=== PATIENT | female | born 1960 | race Hispanic/Latino ===

== ENCOUNTER 2020-04-14 13:08 | Emergency (ER) | payer BC ==
--- NOTE | 2020-04-14 13:55 | Emergency Department Report ---
HPI - General Chief Complaint: Psych Time Seen by Provider: 04/14/20 13:27 - HPI HPI: This is a 59-year-old female who presents to the emergency department, brought in from home by her , for a mental health evaluation. The patient attempted to overdose on her medication just prior to presentation this morning. The noticed her stick the pills in her mouth and he was able to manually remove them from her mouth, and he does not feel that she actually ingested any of the medication. The patient has a history of "psychotic dep ression" and she was just recently in [place] for 8 days and got out yesterday. While she was in [place] the was notified that the patient try to stick a pencil or pen in her wrist, and separately tried to electrocute herself in a wall socket, and was placed on a one-to-one observation there. He says that she was discharged yesterday after she was "stabilized." She remains on the Cymbalta and Zyprexa that she previously was taking, and is on the same dose. [place] added trazodone and Benadryl for sleep. Prior to the suicide attempt/ingestion, the patient's attempted to make an appointment with Dr. Jalloh to establish care as her new psychiatrist and did get an appointment for Sunday. He called them back after the patient attempted to harm herself and they were told to come to the [facility] emergency department as "they are associated with your hospital." ED Past Medical Hx - Past Medical History Hx Hypertension: Yes Hx Psychiatric Treatment: Yes (PSYCHOTIC DEPRESSION) - Surgical History Past Surgical History?: No Additional Surgical History: C SECTION - Social History Smoking Status: Never Smoker Substance Use Type: None ED Review of Systems ROS: Stated complaint: MENTAL HEALTH EVAL Other details as noted in HPI Comment: All other systems reviewed and negative Constitutional: denies: chills, fever Eyes: denies: eye pain, vision change ENT: denies: ear pain, throat pain Respiratory: denies: cough, shortness of breath Cardiovascular: denies: chest pain, palpitations Gastrointestinal: denies: abdominal pain, vomiting Musculoskeletal: denies: back pain, arthralgia Neurological: denies: headache, weakness Psychiatric: depression, suicidal thoughts Physical Exam - Physical Exam Vital Signs: Vital Signs 04/14/20 13:17 Temperature 98.2 F Pulse Rate 88 Respiratory 20 Rate Blood Pressure 150/76 O2 Sat by Pulse 96 Oximetry Physical Exam: GENERAL: The patient is well-developed well-nourished. HENT: Normocephalic. Atraumatic. Patient has moist mucous membranes. EYES: Extraocular motions are intact. NECK: Supple. Trachea is midline. CHEST/LUNGS: Clear to auscultation. There is no respiratory distress noted. HEART/CARDIOVASCULAR: Regular. There is no tachycardia. There is no murmur. ABDOMEN: Abdomen is soft, nontender. Patient has normal bowel sounds. SKIN: Skin is warm and dry. NEURO: The patient is awake, alert, and cooperative. Normal speech. MUSCULOSKELETAL: There is no tenderness or deformity. There is no limitation range of motion. PSYCH: Patient has a flat affect. ED Course Vital Signs 04/14/20 13:17 Temperature 98.2 F Pulse Rate 88 Respiratory 20 Rate Blood Pressure 150/76 O2 Sat by Pulse 96 Oximetry - Reevaluation(s) Reevaluation #1: 04/14/20 15:28 Lab Results 04/14/20 04/14/20 04/14/20 Range/Units 14:26 14:26 14:26 WBC 7.3 (4.5-11.0) K/mm3 RBC 4.87 (3.65-5.03) M/mm3 Hgb 14.2 (10.1-14.3) gm/dl Hct 43.0 H (30.3-42.9) % MCV 88 (79-97) fl MCH 29 (28-32) pg MCHC 33 (30-34) % RDW 14.6 (13.2-15.2) % Plt Count 268 (140-440) K/mm3 Lymph % (Auto) 13.8 (13.4-35.0) % [place] % (Auto) 4.8 (0.0-7.3) % Eos % (Auto) 0.3 (0.0-4.3) % Baso % (Auto) 0.1 (0.0-1.8) % Lymph # (Auto) 1.0 L (1.2-5.4) K/mm3 [place] # (Auto) 0.3 (0.0-0.8) K/mm3 Eos # (Auto) 0.0 (0.0-0.4) K/mm3 Baso # (Auto) 0.0 (0.0-0.1) K/mm3 Seg Neutrophils % 81.0 H (40.0-70.0) % Seg Neutrophils # 5.9 (1.8-7.7) K/mm3 Sodium 139 (137-145) mmol/L Potassium 4.4 (3.6-5.0) mmol/L Chloride 103.9 (98-107) mmol/L Carbon Dioxide 26 (22-30) mmol/L Anion Gap 14 mmol/L BUN 18 H (7-17) mg/dL Creatinine 0.9 (0.6-1.2) mg/dL Estimated GFR > 60 ml/min BUN/Creatinine Ratio 20 % Glucose 116 H (65-100) mg/dL Calcium 9.7 (8.4-10.2) mg/dL Total Bilirubin 0.30 (0.1-1.2) mg/dL AST 22 (5-40) units/L ALT 29 (7-56) units/L Alkaline Phosphatase 47 (35-129) units/L Total Protein 6.7 (6.3-8.2) g/dL Albumin 4.2 (3.9-5) g/dL Albumin/Globulin Ratio 1.7 % Urine Color (Yellow) Urine Turbidity (Clear) Urine pH (5.0-7.0) Ur Specific [place] (1.003-1.030) Urine Protein (Negative) mg/dL Urine Glucose (UA) (Negative) mg/dL Urine Ketones (Negative) mg/dL Urine Blood (Negative) Urine Nitrite (Negative) Urine Bilirubin (Negative) Urine Urobilinogen (<2.0) mg/dL Ur Leukocyte Esterase (Negative) Urine WBC (Auto) (0.0-6.0) /HPF Urine RBC (Auto) (0.0-6.0) /HPF U Epithel Cells (Auto) (0-13.0) /HPF Salicylates < 0.3 L (2.8-20.0) mg/dL Urine Opiates Screen Urine Methadone Screen Acetaminophen (10.0-30.0) ug/mL Ur Barbiturates Screen Ur Phencyclidine Scrn Ur Amphetamines Screen U Benzodiazepines Scrn Urine Cocaine Screen U Marijuana (THC) Screen Drugs of Abuse Note Plasma/Serum Alcohol (0-0.07) % 04/14/20 04/14/20 04/14/20 Range/Units 14:26 14:26 Unknown WBC (4.5-11.0) K/mm3 RBC (3.65-5.03) M/mm3 Hgb (10.1-14.3) gm/dl Hct (30.3-42.9) % MCV (79-97) fl MCH (28-32) pg MCHC (30-34) % RDW (13.2-15.2) % Plt Count (140-440) K/mm3 Lymph % (Auto) (13.4-35.0) % [place] % (Auto) (0.0-7.3) % Eos % (Auto) (0.0-4.3) % Baso % (Auto) (0.0-1.8) % Lymph # (Auto) (1.2-5.4) K/mm3 [place] # (Auto) (0.0-0.8) K/mm3 Eos # (Auto) (0.0-0.4) K/mm3 Baso # (Auto) (0.0-0.1) K/mm3 Seg Neutrophils % (40.0-70.0) % Seg Neutrophils # (1.8-7.7) K/mm3 Sodium (137-145) mmol/L Potassium (3.6-5.0) mmol/L Chloride (98-107) mmol/L Carbon Dioxide (22-30) mmol/L Anion Gap mmol/L BUN (7-17) mg/dL Creatinine (0.6-1.2) mg/dL Estimated GFR ml/min BUN/Creatinine Ratio % Glucose (65-100) mg/dL Calcium (8.4-10.2) mg/dL Total Bilirubin (0.1-1.2) mg/dL AST (5-40) units/L ALT (7-56) units/L Alkaline Phosphatase (35-129) units/L Total Protein (6.3-8.2) g/dL Albumin (3.9-5) g/dL Albumin/Globulin Ratio % Urine Color Straw (Yellow) Urine Turbidity Clear (Clear) Urine pH 7.0 (5.0-7.0) Ur Specific [place] 1.004 (1.003-1.030) Urine Protein <15 mg/dl (Negative) mg/dL Urine Glucose (UA) Neg (Negative) mg/dL Urine Ketones Neg (Negative) mg/dL Urine Blood Mod (Negative) Urine Nitrite Neg (Negative) Urine Bilirubin Neg (Negative) Urine Urobilinogen < 2.0 (<2.0) mg/dL Ur Leukocyte Esterase Neg (Negative) Urine WBC (Auto) 1.0 (0.0-6.0) /HPF Urine RBC (Auto) < 1.0 (0.0-6.0) /HPF U Epithel Cells (Auto) 1.0 (0-13.0) /HPF Salicylates (2.8-20.0) mg/dL Urine Opiates Screen Urine Methadone Screen Acetaminophen 5.0 L (10.0-30.0) ug/mL Ur Barbiturates Screen Ur Phencyclidine Scrn Ur Amphetamines Screen U Benzodiazepines Scrn Urine Cocaine Screen U Marijuana (THC) Screen Drugs of Abuse Note Plasma/Serum Alcohol < 0.01 (0-0.07) % 04/14/20 Range/Units Unknown WBC (4.5-11.0) K/mm3 RBC (3.65-5.03) M/mm3 Hgb (10.1-14.3) gm/dl Hct (30.3-42.9) % MCV (79-97) fl MCH (28-32) pg MCHC (30-34) % RDW (13.2-15.2) % Plt Count (140-440) K/mm3 Lymph % (Auto) (13.4-35.0) % [place] % (Auto) (0.0-7.3) % Eos % (Auto) (0.0-4.3) % Baso % (Auto) (0.0-1.8) % Lymph # (Auto) (1.2-5.4) K/mm3 [place] # (Auto) (0.0-0.8) K/mm3 Eos # (Auto) (0.0-0.4) K/mm3 Baso # (Auto) (0.0-0.1) K/mm3 Seg Neutrophils % (40.0-70.0) % Seg Neutrophils # (1.8-7.7) K/mm3 Sodium (137-145) mmol/L Potassium (3.6-5.0) mmol/L Chloride (98-107) mmol/L Carbon Dioxide (22-30) mmol/L Anion Gap mmol/L BUN (7-17) mg/dL Creatinine (0.6-1.2) mg/dL Estimated GFR ml/min BUN/Creatinine Ratio % Glucose (65-100) mg/dL Calcium (8.4-10.2) mg/dL Total Bilirubin (0.1-1.2) mg/dL AST (5-40) units/L ALT (7-56) units/L Alkaline Phosphatase (35-129) units/L Total Protein (6.3-8.2) g/dL Albumin (3.9-5) g/dL Albumin/Globulin Ratio % Urine Color (Yellow) Urine Turbidity (Clear) Urine pH (5.0-7.0) Ur Specific [place] (1.003-1.030) Urine Protein (Negative) mg/dL Urine Glucose (UA) (Negative) mg/dL Urine Ketones (Negative) mg/dL Urine Blood (Negative) Urine Nitrite (Negative) Urine Bilirubin (Negative) Urine Urobilinogen (<2.0) mg/dL Ur Leukocyte Esterase (Negative) Urine WBC (Auto) (0.0-6.0) /HPF Urine RBC (Auto) (0.0-6.0) /HPF U Epithel Cells (Auto) (0-13.0) /HPF Salicylates (2.8-20.0) mg/dL Urine Opiates Screen Negative Urine Methadone Screen Negative Acetaminophen (10.0-30.0) ug/mL Ur Barbiturates Screen Negative Ur Phencyclidine Scrn Negative Ur Amphetamines Screen Negative U Benzodiazepines Scrn Negative Urine Cocaine Screen Negative U Marijuana (THC) Screen Negative Drugs of Abuse Note Disclamer Plasma/Serum Alcohol (0-0.07) % ED Medical Decision Making - Lab Data Result diagrams: 04/14/20 14:26 04/14/20 14:26 - Medical Decision Making This patient presents to the emergency department with depression, suicidal ideations and a suicide attempt. However the patient's was standing right near her when she attempted to overdose on medications and he was able to manually remove these medications from her mouth before she was able to swallow/ingest them. However, secondary to the suicidal ideations and attempt the patient has been made a 1013. Her labs have been mostly unremarkable including CBC, metabolic panel, urine drug screen, blood alcohol level, acetaminophen and salicylate levels. Vital signs have been reassuring throughout her ED course thus far. She is medically cleared for psychiatric placement. Critical Care Time: No Critical care attestation.: If time is entered above; I have spent that time in minutes in the direct care of this critically ill patient, excluding procedure time. ED Disposition Clinical Impression: Suicidal ideations Depression Qualifiers: Depression Type: unspecified Qualified Code(s): F32.9 - Major depressive disorder, single episode, unspecified Suicide attempt by drug ingestion Qualifiers: Encounter type: initial encounter Qualified Code(s): T50.902A - Poisoning by unspecified drugs, medicaments and biological substances, intentional self-harm, initial encounter Disposition: DC/TX-65 PSY HOSP/PSY UNIT Is pt being admited?: No Condition: Stable Time of Disposition: 15:30
[2020-04-14 14:14] LABS: Bilirubin,Urine NEG (Negative); Blood,Urine MOD (Negative); Color,Urine Straw (Yellow); Protein,Urine <15 mg/dL mg/dL (Negative); RBC,Urine < 1.0 /HPF (0.0-6.0); Urobilinogen,Urine < 2.0 mg/dL (<2.0)
[2020-04-14 14:21] LABS: Amphetamine Screen,Urine Negative; Benzodiazepines Screen,Urine Negative; Cannabinoid Screen,Urine Negative; Cocaine Screen,Urine Negative; Methadone Screen,Urine Negative; Opiate Screen,Urine Negative
[2020-04-14 15:07] LABS: Basophils % (Auto) 0.1 % (0.0-1.8); Eosinophils % (Auto) 0.3 % (0.0-4.3); Hemoglobin 14.2 gm/dl (10.1-14.3); Lymphocytes % (Auto) 13.8 % (13.4-35.0); Mean Corpuscular HGB Conc 33 % (30-34); Mean Corpuscular Volume 88 fl (79-97); Monocytes # (Auto) 0.3 K/mm3 (0.0-0.8); Monocytes % (Auto) 4.8 % (0.0-7.3); Platelet Count 268 K/mm3 (140-440); Red Blood Count 4.87 M/mm3 (3.65-5.03); Red Cell Distribution Width 14.6 % (13.2-15.2)
[2020-04-14 15:19] LABS: Alanine Aminotransferase 29 units/L (7-56); Albumin 4.2 g/dL (3.9-5); BUN/Creatinine Ratio 20; Blood Urea Nitrogen 18 mg/dL (7-17); Calcium 9.7 mg/dL (8.4-10.2); Hemolysis Index 7
[2020-04-15 07:50] VITALS: BP 129/78
--- NOTE | 2020-04-15 09:22 | Consultation ---
History of Present Illness - Reason for Consult Consult date: 04/15/20 Reason for consult: SI - History of Present Psychiatric Illness Lorin Hector is a 59y/o female patient who was recently discharged from [place]. The patient attempted to OD on her medications after discharge. It is documented that the states he was able to manually removed the medications from her mouth. During my interview with her this morning, she is a/o x 3. Her affect is flat. She verbalizes being depressed. She says her moods go up and down. She says "I wasn't feeling like myself that's why I took the pills." The patient says she has a history of "psychotic depression." She says she takes "cymbalta and zyprexa and they've been working well before." She denies hallucinations of any kind. The patient also denies any illicit drug use, alcohol or nicotine. Attempted to speak with the patient's spouse at [phone]. He says the patient's mood dropped drastically yesterday. He says the patient's mostly deals with "psychosis." He says the patient gets paranoid. She starts thinking that he doesn't love her any more, people are changing her medications. He says the patient suffers from anxiety a lot and can't ride in a car without severe anxiety and clutching the seats. He says the patient was on risperidone but it didn't work well. He says the Zyprexa and cymbalta has helped keep her stable for the last five years. PAST PSYCHIATRIC HISTORY Diagnoses: "psychotic depression" Suicide attempts or Self-harm behavior: Yes Prior psychiatric hospitalizations: Yes Substance Abuse history: Denies Previous psychiatric medications tried: cymbalta, zyprexa Outpatient treatment: Yes PAST MEDICAL HISTORY: None reported Family Psychiatric History: None reported or documented SOCIAL HISTORY Marital Status: Living Arrangements: with spouse Employment Status: Unemployed Access to guns/weapons: None reported Education: high school History of Abuse: None reported Legal History: Yes REVIEW OF SYSTEMS Constitutional: Negative for weight loss ENT: Negative for stridor Respiratory: Negative for cough or hemoptysis All other systems reviewed and are negative MENTAL STATUS EXAMINATION General Appearance and Behavior: Age appropriate, good hygiene, wearing appropriate clothes, good eye contact Cooperation: Participating/engaged Psychomotor Behavior: Psychomotor normal Mood: depressed Affect and affective range: flat Thought Process: goal directed Thought Content: hopelessness Speech: Normal rate, volume and rhythm Suicidal Ideation: Yes Homicidal Ideation: Denies Hallucinations: Denies Delusions: None elicited Impulse Control: Impaired Insight and Judgment: Limited insight and judgment Memory: Normal Attention: Normal Orientation: Alert, oriented Assessment and Plan (1) Major Depressive Disorder with Psychotic Features (2) Generalized Anxiety Disorder Treatment Start Depakote DR 125mg po BID Start Vistaril 25mg po BID prn anxiety Sitter: Defer to primary Medical: per primary Disposition: Recommend acute inpatient psychiatric treatment Will follow. Thank you for this consult. Medications and Allergies Allergies Allergy/AdvReac Type Severity Reaction Status Date / Time No Known Allergies Allergy Unverified 04/14/20 13:15 Home Medications Medication Instructions Recorded Confirmed Last Taken Type Duloxetine HCl 1 tab PO DAILY 04/14/20 04/14/20 Unknown History OLANZapine [Zyprexa] 1 tab PO QHS 04/14/20 04/14/20 Unknown History traZODone [Desyrel] 200 mg PO QHS 04/14/20 04/14/20 Unknown History Mental Status Exam - Vital signs Last Vital Signs Temp 97.9 F 04/15/20 07:50 Pulse 88 04/15/20 07:50 Resp 18 04/15/20 07:50 BP 129/78 04/15/20 07:50 Pulse Ox 96 04/15/20 07:50 Results Result Diagrams: 04/14/20 14:26 04/14/20 14:26 Abnormal lab results 04/14/20 04/14/20 04/14/20 Range/Units 14:26 14:26 14:26 Hct 43.0 H (30.3-42.9) % Lymph # (Auto) 1.0 L (1.2-5.4) K/mm3 Seg Neutrophils % 81.0 H (40.0-70.0) % BUN 18 H (7-17) mg/dL Glucose 116 H (65-100) mg/dL Salicylates < 0.3 L (2.8-20.0) mg/dL Acetaminophen (10.0-30.0) ug/mL 04/14/20 Range/Units 14:26 Hct (30.3-42.9) % Lymph # (Auto) (1.2-5.4) K/mm3 Seg Neutrophils % (40.0-70.0) % BUN (7-17) mg/dL Glucose (65-100) mg/dL Salicylates (2.8-20.0) mg/dL Acetaminophen 5.0 L (10.0-30.0) ug/mL All other labs normal.
[2020-04-15] MEDS ORDERED: hydrOXYzine PAMOATE 25 MG CAP PO PRN (09:46)
[2020-04-15] MEDS ORDERED: ARIPiprazole 5 MG TAB PO SCH (10:00)
[2020-04-15] MEDS ORDERED: DIVALPROEX DR 125 MG TAB PO SCH (10:00)
[2020-04-15] MEDS ORDERED: DULoxetine 30 MG CAP PO SCH (10:00)
[2020-04-15] MEDS ORDERED: NON-FORMULARY EACH (Duloxetine Hcl [Duloxetine Hcl] 60 MG Capsule.Dr) PO SCH (10:00)
[2020-04-15] MEDS ORDERED: risperiDONE 0.25 MG TAB PO SCH (10:00)
[2020-04-15] MEDS ORDERED: traZODone 100 MG TAB PO SCH (22:00)
== END 2020-04-15 16:34 ==
LOC: ED 13:08
DX: T65.92XA Toxic effect of unspecified substance, intentional self-harm, initial encounter (principal); Z20.828 Contact with and (suspected) exposure to other viral communicable diseases; R45.851 Suicidal ideations; F32.9 Major depressive disorder, single episode, unspecified; I10 Essential (primary) hypertension; Z98.890 Other specified postprocedural states; Y92.89 Other specified places as the place of occurrence of the external cause
CPT/HCPCS: 36415; 80053; 80307; 81001; 85025; 99285; U0003; 80320; G0480

== ENCOUNTER 2020-04-15 15:20 | Inpatient (IN) | payer BC ==
[2020-04-15] MEDS ORDERED: hydrOXYzine PAMOATE 25 MG CAP PO PRN (15:31)
--- NOTE | 2020-04-15 19:41 | Consultation ---
History of Present Illness - Reason for Consult Consult date: 04/15/20 Medical management Requesting physician: RUSTY JUAREZ - History of Present Illness 59 YO Female with HTN, Depression admitted to [facility] for Psychiatric stabilization. Patient seen and evaluated in the recreation room. Patient appears comfortable. Patient denies fever, chills, chest pain, palpitation, productive cough, skin rash, recent ill contacts, or known exposure to COVID-19. Patient resting comfortably. No reported nursing events. Past History Past Medical History: other (see HPI) Past Surgical History: Social history: single Family history: hypertension Medications and Allergies Allergies Allergy/AdvReac Type Severity Reaction Status Date / Time No Known Allergies Allergy Unverified 04/14/20 13:15 Home Medications Medication Instructions Recorded Confirmed Last Taken Type Duloxetine HCl 1 tab PO DAILY 04/14/20 04/15/20 Unknown History OLANZapine [Zyprexa] 1 tab PO QHS 04/14/20 04/15/20 Unknown History traZODone [Desyrel] 200 mg PO QHS 04/14/20 04/15/20 Unknown History Active Meds: Active Medications Divalproex Sodium (Divalproex Dr 125 Mg Tab) 125 mg PO BID EUGENIO Duloxetine HCl (Duloxetine 30 Mg Cap) 60 mg PO QDAY EUGENIO Hydroxyzine Pamoate (Hydroxyzine Pamoate 25 Mg Cap) 25 mg PO BID PRN PRN Reason: Anxiety Olanzapine (Olanzapine 10 Mg Tab) 20 mg PO QHS EUGENIO Trazodone HCl (Trazodone 100 Mg Tab) 200 mg PO QHS [facility] Review of Systems Constitutional: no weight loss, no weight gain, no chills, no sweats Ears, nose, mouth and throat: no ear pain, no ear discharge, no decreased hearing, no nasal congestion Breasts: no change in shape Cardiovascular: no orthopnea, no rapid/irregular heart beat, no syncope, no lightheadedness Respiratory: no cough, no excessive sputum, no shortness of breath, no dyspnea on exertion Gastrointestinal: no abdominal pain, no vomiting Genitourinary Female: no pelvic pain, no flank pain, no dysuria, no urinary frequency Rectal: no pain, no incontinence Musculoskeletal: no low back pain Integumentary: no rash, no pruritis, no redness, no sores, no wounds Neurological: no head injury, no paralysis, no parathesias Psychiatric: no memory loss, no insomnia, no hallucinations Endocrine: no cold intolerance, no heat intolerance, no excessive thirst Hematologic/Lymphatic: no easy bruising Allergic/Immunologic: no urticaria, no allergic rhinitis, no persistent infections, no anaphylaxis Exam - Constitutional General appearance: Present: no acute distress, well-nourished Results - Labs Labs: Abnormal lab results 04/15/20 Range/Units 18:14 POC Glucose 126 H (70-105) mg/dL Assessment and Plan - Patient Problems (1) Hypertension Current Visit: Yes Status: Acute Qualifiers: Hypertension type: essential hypertension Qualified Code(s): I10 - Essential (primary) hypertension Plan to address problem: Patient is normotensive at this time. Continue to monitor blood pressure every shift. We will hold antihypertensive therapy for now. Patient is actually borderline hypotensive. (2) Diabetes Current Visit: Yes Status: Acute Plan to address problem: Supportive care. Hemoglobin A1c 5.7, consistent carbohydrate diet.
[2020-04-15] MEDS: traZODone 100 MG TAB PO SCH (21:52)
[2020-04-15] MEDS: DIVALPROEX DR 125 MG TAB PO SCH ×2 (21:53→22:00)
[2020-04-15] MEDS ORDERED: NON-FORMULARY EACH (Olanzapine [Zyprexa] 20 MG Tablet) PO SCH (22:00)
--- NOTE | 2020-04-16 07:32 | History and Physical Report ---
GP History & Physical - History of Present Illness Date of admission: 04/15/20 Date of Examination: 04/16/20 Reason for Admission: Danger to self, Severe anxiety/depression History of Present Illness: Per ED Provider: This is a 59-year-old female who presents to the emergency department, brought in from home by her , for a mental health evaluation. The patient attempted to overdose on her medication just prior to presentation this morning. The noticed her stick the pills in her mouth and he was able to manually remove them from her mouth, and he does not feel that she actually ingested any of the medication. The patient has a history of "psychotic depression" and she was just recently in [place] for 8 days and got out yesterday. While she was in [place] the was notified that the patient try to stick a pencil or pen in her wrist, and separately tried to electrocute herself in a wall socket, and was placed on a one-to-one observation there. He says that she was discharged yesterday after she was "stabilized." She remains on the Cymbalta and Zyprexa that she previously was taking, and is on the same dose. [place] added trazodone and Benadryl for sleep. Prior to the suicide attempt/ingestion, the patient's attempted to make an appointment with Dr. Jalloh to establish care as her new psychiatrist and did get an appointment for Sunday. He called them back after the patient attempted to harm herself and they were told to come to the [facility] emergency department as "they are associated with your hospital." PSYCH HPI Patient is a 59 year old with children, unemployed Female who resides with with prior psychiatric history of Psychotic Depression, and no significant past medial history who presents to hospital due to SI and Major Depression. Patient reports loosing her dad earlier this year, and this would be the first holiday she would be spending without her dad. Patient reports her dad was 87 before he and not being able to share those moments makes her extremely depressed and she just want to kill herself then patient states she has her own family to live for and she would not want them to be in the same position she is if she had actually killed herself. Patient reports she began having mental health issues 20 years ago because she could barely cope with things she was experiencing at that time and had a mental breakdown. Patient denies nightmares, visual hallucinations and also auditory hallucination. PAST PSYCHIATRIC HISTORY Diagnoses: "psychotic depression" Suicide attempts or Self-harm behavior: Yes Prior psychiatric hospitalizations: Yes Substance Abuse history: Denies Previous psychiatric medications tried: cymbalta, zyprexa Outpatient treatment: Yes PAST MEDICAL HISTORY: None reported Family Psychiatric History: None reported or documented SOCIAL HISTORY Marital Status: Living Arrangements: with spouse Employment Status: Unemployed Access to guns/weapons: None reported Education: high school History of Abuse: None reported Legal History: Yes REVIEW OF SYSTEMS Constitutional: Negative for weight loss ENT: Negative for stridor Respiratory: Negative for cough or hemoptysis All other systems reviewed and are negative MENTAL STATUS EXAMINATION General Appearance and Behavior: Age appropriate, good hygiene, wearing appropriate clothes, good eye contact Cooperation: Participating/engaged Psychomotor Behavior: Psychomotor normal Mood: depressed Affect and affective range: flat Thought Process: goal directed Thought Content: hopelessness Speech: Normal rate, volume and rhythm Suicidal Ideation: Yes Homicidal Ideation: Denies Hallucinations: Denies Delusions: None elicited Impulse Control: Impaired Insight and Judgment: Limited insight and judgment Memory: Normal Attention: Normal Orientation: Alert, oriented Assessment and Plan (1) Major Depressive Disorder with Psychotic Features (2) Generalized Anxiety Disorder Treatment Plan WIll restart hoem medications, add Wellbutrin because its more activating. Patient admitted for inpatient psychiatric evaluation, medication adjustment and close monitoring The patient's behavior, mood, sleep and appetite will be closely monitored. Patient enrolled in individual and group therapeutic sessions and encouraged to attend. Patient provided with a safe and structured environment. Patient's physical health needs will be addressed by the Hospitalist. Hospitalist Consulted Labs including CBC, CMP, Lipid profile and Hemoglobin A1C levels ordered for baseline reference Social Assessment will be completed and the Teleprinter Installer will work with patient and family to ensure a suitable and safe disposition Medication adjustment will be made as clinically indicated Usual Wellness Orthodoxy/Preservation: - Start Trazodone 50 mg po QHS - Start Melatonin 5 mg po QHS to promote circadian rhythm - Start [place]-3 for brain health, reduce impulsivity, and as adjunctive treatment for mood disorder, continue upon discharge given overall benefits. - Start B1 prophylaxis with 200 mg po for 5 days The patient agreed on the treatment plan, understood the risk, benefit, alternative treatment, potential consequence of no treatment, and gave informed consent. Initial Certification I certify that the inpatient psychiatric services are required for treatment that could reasonably be expected to improve the patient's condition for aggression and irritability Estimated days: 7 Post hospital care: primary care provider, psychiatric provider The case was staffed with Dr. Pabon Legal Status: Voluntary Reaction to Hospitalization: Accepting Legal Status: Voluntary Legal Status: Voluntary Reaction to Hospitalization: Accepting Medications and Allergies Allergies Allergy/AdvReac Type Severity Reaction Status Date / Time No Known Allergies Allergy Unverified 04/14/20 13:15 Home Medications Medication Instructions Recorded Confirmed Last Taken Type Duloxetine HCl 1 tab PO DAILY 04/14/20 04/15/20 Unknown History OLANZapine [Zyprexa] 1 tab PO QHS 04/14/20 04/15/20 Unknown History traZODone [Desyrel] 200 mg PO QHS 04/14/20 04/15/20 Unknown History Active Meds: Active Medications Divalproex Sodium (Divalproex Dr 125 Mg Tab) 125 mg PO BID [facility] Last Admin: 04/15/20 22:00 Dose: Not Given Documented by: Duloxetine HCl (Duloxetine 30 Mg Cap) 60 mg PO QDAY [facility] Hydroxyzine Pamoate (Hydroxyzine Pamoate 25 Mg Cap) 25 mg PO BID PRN PRN Reason: Anxiety Olanzapine (Olanzapine 10 Mg Tab) 20 mg PO QHS [facility] Last Admin: 04/15/20 21:53 Dose: 20 mg Documented by: Trazodone HCl (Trazodone 100 Mg Tab) 200 mg PO QHS [facility] Last Admin: 04/15/20 21:52 Dose: 200 mg Documented by: Results - Results Labs/Vitals: Laboratory Last Values POC Glucose 126 mg/dL (70-105) H 04/15/20 18:14 Physician Certification - Certification Statement Physician Certification Statement: This is an acknowledgement statement that CHUY MORAN is a 59 year old F who requires inpatient psychiatric admission for treatment which could reasonably be expected to improve the patient's condition for Estimated period of time patient will need to remain in the hospital: [ ] Plan for post-hospital care: [ ]
[2020-04-16] MEDS ORDERED: NON-FORMULARY EACH (Duloxetine Hcl [Duloxetine Hcl] 60 MG Capsule.Dr) PO SCH (10:00)
[2020-04-16] MEDS: DULoxetine 30 MG CAP PO SCH (10:32)
[2020-04-16] MEDS: buPROPion 100 MG TAB PO SCH (15:54)
[2020-04-16] MEDS: DIVALPROEX DR 125 MG TAB PO SCH ×2 (15:54→21:14)
[2020-04-16] MEDS: traZODone 100 MG TAB PO SCH (21:14)
--- NOTE | 2020-04-17 09:07 | Progress Note ---
Subjective Date of service: 04/17/20 Principal diagnosis: (1) Major Depressive Disorder with Psychotic Features Subjective Comment: Psych Nurse: Last evening the patient walked around the unit with a bizarre affect. She discussed her depression and her long marriage that she states "will Not last longer". When questioned about that statement the patient doesn't answer. Patient is paranoid regarding her room and her medications. She refused sever=stephen Psych progress note Patient seen this a.m., patient reported having sleeping issues, says her mood is pretty good denies any auditory or visual destinations also denies any thoughts of suicide. At her first patient statement that she made about a marriage yesterday patient did acknowledge saying that I asked her why she thinks that her marriage did not last, patient said because she thinks that her does not really love her. I asked patient if the did anything or said anything to hurt that could suggest that patient says no is just a feeling. Reason for continued acute psychiatric inpatient hospitalization: though SI symptoms no longer present, concern for underlying borderline or bipolar symptoms, persistent impulsivity, indiscretion, intermittent ideas, and unstable mood associated with poor sleep and treatment regimen non adherence. May be hypomanic, untreated. Will check for deparkote levels tomorrow. I informed patient about her new medication Wellbutrin that was started, she is agreeable to medication. REVIEW OF SYSTEMS Constitutional: Negative for weight loss ENT: Negative for stridor Respiratory: Negative for cough or hemoptysis All other systems reviewed and are negative MENTAL STATUS EXAMINATION General Appearance and Behavior: Age appropriate, good hygiene, wearing approp riate clothes, good eye contact Cooperation: Participating/engaged Psychomotor Behavior: Psychomotor normal Mood: depressed Affect and affective range: flat Thought Process: goal directed, illogical Thought Content: hopelessness, , Obsessions, Flight of ideas, Illogical, Speech: Normal rate, volume and rhythm Suicidal Ideation: None today Homicidal Ideation: Denies Hallucinations: Denies Delusions: None elicited Impulse Control: Impaired Insight and Judgment: Limited insight and judgment Memory: Normal Attention: Normal Orientation: Alert, oriented Assessment and Plan (1) Major Depressive Disorder with Psychotic Features (2) Generalized Anxiety Disorder Treatment Plan Will restart hoem medications, add Wellbutrin because its more activating. Patient admitted for inpatient psychiatric evaluation, medication adjustment and close monitoring The patient's behavior, mood, sleep and appetite will be closely monitored. Patient enrolled in individual and group therapeutic sessions and encouraged to attend. Patient provided with a safe and structured environment. Patient's physical health needs will be addressed by the Hospitalist. Hospitalist Consulted Labs including CBC, CMP, Lipid profile and Hemoglobin A1C levels ordered for baseline reference Social Assessment will be completed and the Tube Cutter will work with patient and family to ensure a suitable and safe disposition Medication adjustment will be made as clinically indicated Usual Wellness Bahai/Preservation: - Start Trazodone 50 mg po QHS - Start Melatonin 5 mg po QHS to promote circadian rhythm - Start [place]-3 for brain health, reduce impulsivity, and as adjunctive treatment for mood disorder, continue upon discharge given overall benefits. - Start B1 prophylaxis with 200 mg po for 5 days The patient agreed on the treatment plan, understood the risk, benefit, alternative treatment, potential consequence of no treatment, and gave informed consent. Initial Certification I certify that the inpatient psychiatric services are required for treatment that could reasonably be expected to improve the patient's condition for ag gression and irritability Estimated days: 6 Post hospital care: primary care provider, psychiatric provider The case was staffed with Dr. Pabon Legal Status: Voluntary Reaction to Hospitalization: Accepting Legal Status: Voluntary Legal Status: Voluntary Reaction to Hospitalization: Accepting Medications and Allergies Allergies Allergy/AdvReac Type Severity Reaction Status Date / Time No Known Allergies Allergy Unverified 04/14/20 13:15 Home Medications Medication Instructions Recorded Confirmed Last Taken Type Duloxetine HCl 1 tab PO DAILY 04/14/20 04/15/20 Unknown History OLANZapine [Zyprexa] 1 tab PO QHS 04/14/20 04/15/20 Unknown History traZODone [Desyrel] 200 mg PO QHS 04/14/20 04/15/20 Unknown History Active Meds: Active Medications Bupropion HCl (Bupropion 100 Mg Tab) 200 mg PO 0900,1400 [facility] Divalproex Sodium (Divalproex Dr 125 Mg Tab) 250 mg PO TID [facility] Duloxetine HCl (Duloxetine 30 Mg Cap) 60 mg PO QDAY [facility] Last Admin: 04/16/20 10:32 Dose: 60 mg Documented by: Hydroxyzine Pamoate (Hydroxyzine Pamoate 25 Mg Cap) 25 mg PO BID PRN PRN Reason: Anxiety Olanzapine (Olanzapine 10 Mg Tab) 20 mg PO QHS [facility] Last Admin: 04/16/20 21:14 Dose: 20 mg Documented by: Trazodone HCl (Trazodone 100 Mg Tab) 200 mg PO QHS [facility] Last Admin: 04/16/20 21:14 Dose: 200 mg Documented by: Results - Results Labs/Vitals: Laboratory Last Values POC Glucose 104 mg/dL (70-105) 04/16/20 20:09 Last Vital Signs Temp 99.4 F 04/16/20 22:00 Pulse 81 04/16/20 22:00 Resp 18 04/16/20 22:00 BP 102/69 04/16/20 22:00 Pulse Ox 95 04/16/20 22:00
[2020-04-17] MEDS: DULoxetine 30 MG CAP PO SCH (09:48)
[2020-04-17 11:00] LABS: Chol/HDL Ratio 3.43 %
[2020-04-17] MEDS: DIVALPROEX DR 125 MG TAB PO SCH ×3 (11:16→21:06)
[2020-04-17] MEDS: buPROPion 100 MG TAB PO SCH ×3 (11:17→14:36)
--- NOTE | 2020-04-17 20:09 | Progress Note ---
Assessment and Plan - Patient Problems (1) Hypertension Current Visit: Yes Status: Acute Qualifiers: Hypertension type: essential hypertension Qualified Code(s): I10 - Essential (primary) hypertension Plan to address problem: Patient is normotensive at this time. Continue to monitor blood pressure every shift. We will hold antihypertensive therapy for now. Patient is actually borderline hypotensive. (2) Diabetes Current Visit: Yes Status: Acute Plan to address problem: Supportive care. Hemoglobin A1c 5.7, consistent carbohydrate diet. History Interval history: 59 YO Female with HTN, Depression admitted to [facility] for Psychiatric stabilization. Patient seen and evaluated in the recreation room. Patient appears comfortable. Patient denies any complaints this AM. Patient denies pain. No reported nursing events. Hospitalist Physical - Constitutional Vitals: Temp Pulse Resp BP Pulse Ox 99.4 F 81 18 102/69 95 04/16/20 22:00 04/16/20 22:00 04/16/20 22:00 04/16/20 22:00 04/16/20 22:00 General appearance: Present: no acute distress, well-nourished - EENT Eyes: Present: PERRL, EOM intact ENT: hearing intact - Neck Neck: Present: supple - Respiratory Respiratory effort: normal Respiratory: bilateral: CTA - Cardiovascular Rhythm: regular Heart Sounds: Present: S1 & S2 (Hospitalist.) - Extremities Extremities: no ischemia Peripheral Pulses: within normal limits - Abdominal General gastrointestinal: soft, non-tender, non-distended - Integumentary Integumentary: Present: clear, dry - Psychiatric Psychiatric: cooperative - Neurologic Neurologic: CNII-XII intact Results - Labs Labs: Laboratory Last Values POC Glucose 104 mg/dL (70-105) 04/16/20 20:09 Hemoglobin A1c 5.7 % (4-6) 04/17/20 10:22 Triglycerides 130 mg/dL (2-149) 04/17/20 10:22 Cholesterol 175 mg/dL (50-199) 04/17/20 10:22 LDL Cholesterol Direct 114 mg/dL (50-130) 04/17/20 10:22 HDL Cholesterol 51 mg/dL (40-59) 04/17/20 10:22 Cholesterol/HDL Ratio 3.43 % 04/17/20 10:22 TSH 1.350 mlU/mL (0.270-4.200) 04/17/20 10:22 Hernandez/IV: Voiding Method Toilet Active Medications - Current Medications Current Medications: Generic Name Dose Route Start Last Admin Trade Name Freq PRN Reason Stop Dose Admin Bupropion HCl 200 mg 04/17/20 09:30 04/17/20 14:36 Bupropion 100 Mg Tab PO 200 mg 0900,1400 [facility] Administration Divalproex Sodium 250 mg 04/17/20 10:00 04/17/20 14:[address] 125 Mg Tab PO 250 mg TID [facility] Administration Duloxetine HCl 60 mg 04/16/20 10:00 04/17/20 09:48 Duloxetine 30 Mg Cap PO 60 mg QDAY [facility] Administration Hydroxyzine Pamoate 25 mg 04/15/20 15:31 Hydroxyzine Pamoate 25 Mg Cap PO BID PRN Anxiety Olanzapine 20 mg 04/15/20 22:00 04/16/20 21:14 Olanzapine 10 Mg Tab PO 20 mg QHS [facility] Administration Trazodone HCl 200 mg 04/15/20 22:00 04/16/20 21:14 Trazodone 100 Mg Tab PO 200 mg QHS [facility] Administration
[2020-04-17] MEDS: traZODone 100 MG TAB PO SCH (21:01)
[2020-04-17] MEDS: DIVALPROEX DR 250 MG TAB PO SCH (21:01)
[2020-04-18] MEDS: DIVALPROEX DR 250 MG TAB PO SCH (09:01)
[2020-04-18] MEDS: DULoxetine 30 MG CAP PO SCH (09:01)
[2020-04-18] MEDS: buPROPion 100 MG TAB PO SCH ×2 (09:02→14:11)
--- NOTE | 2020-04-18 09:43 | Progress Note ---
Subjective Date of service: 04/18/20 Principal diagnosis: (1) Major Depressive Disorder with Psychotic Features Subjective Comment: Psych Nurse: Pt scheduled for Trazodone 200 mg at HS. Refused 100 mg and took only 100 mg stating 200 mg is too much for her. Rested w/o incident overnight. Denies SI this a.m. "No more," she stated. Will continue to monitor her. Psych progress note Patient seen this a.m., patient reports feeling much better today, patient states her memory is about that now makes her happy, good times, debilitation, diabetes says she wants to keep positive images only based on her previous discussion. She says she is normal having any negative thoughts about her marriage also, patient denies any any suicidal or homicidal thoughts. Reason for continued acute psychiatric inpatient hospitalization: Though SI symptoms no longer present, concern for underlying borderline or bipolar symptoms, will check Depakote levels today. REVIEW OF SYSTEMS Constitutional: Negative for weight loss ENT: Negative for stridor Respiratory: Negative for cough or hemoptysis All other systems reviewed and are negative MENTAL STATUS EXAMINATION General Appearance and Behavior: Age appropriate, good hygiene, wearing appropriate clothes, good eye contact Cooperation: Participating/engaged Psychomotor Behavior: Psychomotor normal Mood: feeling better Affect and affective range: congruent with mood Thought Process: fluent but preservative Thought Content: Logical, within reality Speech: Normal rate, volume and rhythm Suicidal Ideation: denies Homicidal Ideation: Denies Hallucinations: Denies Delusions: None elicited Impulse Control: unimpaired Insight and Judgment: Limited insight and judgment Memory: Normal Attention: Normal Orientation: Alert, oriented Assessment and Plan (1) Major Depressive Disorder with Psychotic Features (2) Generalized Anxiety Disorder Treatment Plan Continue current meds, will check deparkote levels today Patient admitted for inpatient psychiatric evaluation, medication adjustment and close monitoring The patient's behavior, mood, sleep and appetite will be closely monitored. Patient enrolled in individual and group therapeutic sessions and encouraged to attend. Patient provided with a safe and structured environment. Patient's physical health needs will be addressed by the Hospitalist. Hospitalist Consulted Labs including CBC, CMP, Lipid profile and Hemoglobin A1C levels ordered for baseline reference Social Assessment will be completed and the Irrigator Head will work with patient and family to ensure a suitable and safe disposition Medication adjustment will be made as clinically indicated Usual Wellness Hoahaoism/Preservation: - Start Trazodone 50 mg po QHS - Start Melatonin 5 mg po QHS to promote circadian rhythm - Start [place]-3 for brain health, reduce impulsivity, and as adjunctive treatment for mood disorder, continue upon discharge given overall benefits. - Start B1 prophylaxis with 200 mg po for 5 days The patient agreed on the treatment plan, understood the risk, benefit, alternative treatment, potential consequence of no treatment, and gave informed consent. Initial Certification I certify that the inpatient psychiatric services are required for treatment that could reasonably be expected to improve the patient's condition for aggression and irritability Estimated days: 4 Post hospital care: primary care provider, psychiatric provider The case was staffed with Dr. Pabon Legal Status: Voluntary Reaction to Hospitalization: Accepting Legal Status: Voluntary Legal Status: Voluntary Reaction to Hospitalization: Accepting Medications and Allergies Allergies Allergy/AdvReac Type Severity Reaction Status Date / Time No Known Allergies Allergy Unverified 04/14/20 13:15 Home Medications Medication Instructions Recorded Confirmed Last Taken Type Duloxetine HCl 1 tab PO DAILY 04/14/20 04/15/20 Unknown History OLANZapine [Zyprexa] 1 tab PO QHS 04/14/20 04/15/20 Unknown History traZODone [Desyrel] 200 mg PO QHS 04/14/20 04/15/20 Unknown History Active Meds: Active Medications Bupropion HCl (Bupropion 100 Mg Tab) 200 mg PO 0900,1400 [facility] Last Admin: 04/18/20 09:02 Dose: 200 mg Documented by: Divalproex Sodium (Divalproex Dr 250 Mg Tab) 250 mg PO TID [facility] Last Admin: 04/18/20 09:01 Dose: 250 mg Documented by: Duloxetine HCl (Duloxetine 30 Mg Cap) 60 mg PO QDAY [facility] Last Admin: 04/18/20 09:01 Dose: 60 mg Documented by: Hydroxyzine Pamoate (Hydroxyzine Pamoate 25 Mg Cap) 25 mg PO BID PRN PRN Reason: Anxiety Olanzapine (Olanzapine 10 Mg Tab) 20 mg PO QHS [facility] Last Admin: 04/17/20 21:01 Dose: 20 mg Documented by: Trazodone HCl (Trazodone 100 Mg Tab) 200 mg PO QHS [facility] Last Admin: 04/17/20 21:01 Dose: 200 mg Documented by: Results - Results Labs/Vitals: Laboratory Last Values POC Glucose 104 mg/dL (70-105) 04/16/20 20:09 Hemoglobin A1c 5.7 % (4-6) 04/17/20 10:22 Triglycerides 130 mg/dL (2-149) 04/17/20 10:22 Cholesterol 175 mg/dL (50-199) 04/17/20 10:22 LDL Cholesterol Direct 114 mg/dL (50-130) 04/17/20 10:22 HDL Cholesterol 51 mg/dL (40-59) 04/17/20 10:22 Cholesterol/HDL Ratio 3.43 % 04/17/20 10:22 TSH 1.350 mlU/mL (0.270-4.200) 04/17/20 10:22 Last Vital Signs Temp 98.0 F 04/18/20 07:02 Pulse 77 04/18/20 07:02 Resp 16 04/18/20 07:02 BP 129/72 04/18/20 07:02 Pulse Ox 91 04/18/20 07:02
[2020-04-18] MEDS: traZODone 100 MG TAB PO SCH ×2 (21:51→21:58)
[2020-04-18] MEDS ORDERED: DIVALPROEX DR 250 MG TAB PO SCH (22:00)
--- NOTE | 2020-04-19 07:52 | Progress Note ---
Subjective Date of service: 04/19/20 Principal diagnosis: (1) Major Depressive Disorder with Psychotic Features Subjective Comment: Psych Nurse: Last evening the patient interacted appropriately with her peers. She remains mildly suspicious. She denies si/hi/ah/vh. Patient took all medications except instead of trazodone 200mg the patient took 100 mg. Will continue to monitor patient for safety. Psych progress note Patient seen this AM, still in bed, reports feeling slightly tired but otherwise she feels great mood starkey. Endorses medication compliance but contradicts nurse notes, reports speaking with yesterday and conversation went well. Reason for continued acute psychiatric inpatient hospitalization: Valproate levels are subtherapeutic at 30.7, patient valproate dose adjusted and increased will recheck, Pt informed of changes and why they were made. Will continue to observe for mood stability and start planning for safety discharge. REVIEW OF SYSTEMS Constitutional: Negative for weight loss ENT: Negative for stridor Respiratory: Negative for cough or hemoptysis All other systems reviewed and are negative MENTAL STATUS EXAMINATION General Appearance and Behavior: Age appropriate, good hygiene, wearing appropriate clothes, good eye contact Cooperation: Participating/engaged Psychomotor Behavior: Psychomotor normal Mood: feeling better Affect and affective range: congruent with mood Thought Process: fluent but preservative Thought Content: Logical, within reality Speech: Normal rate, volume and rhythm Suicidal Ideation: denies Homicidal Ideation: Denies Hallucinations: Denies Delusions: None elicited Impulse Control: unimpaired Insight and Judgment: Limited insight and judgment Memory: Normal Attention: Normal Orientation: Alert, oriented Assessment and Plan (1) Major Depressive Disorder with Psychotic Features (2) Generalized Anxiety Disorder Treatment Plan Depakote dose changed, due to subtherapeutic levels. Patient admitted for inpatient psychiatric evaluation, medication adjustment and close monitoring The patient's behavior, mood, sleep and appetite will be closely monitored. Patient enrolled in individual and group therapeutic sessions and encouraged to attend. Patient provided with a safe and structured environment. Patient's physical health needs will be addressed by the Hospitalist. Hospitalist Consulted Labs including CBC, CMP, Lipid profile and Hemoglobin A1C levels ordered for baseline reference Social Assessment will be completed and the Bridge Inspector will work with patient and family to ensure a suitable and safe disposition Medication adjustment will be made as clinically indicated Usual Wellness Amish/Preservation: - Start Trazodone 50 mg po QHS - Start Melatonin 5 mg po QHS to promote circadian rhythm - Start [place]-3 for brain health, reduce impulsivity, and as adjunctive treatment for mood disorder, continue upon discharge given overall benefits. - Start B1 prophylaxis with 200 mg po for 5 days The patient agreed on the treatment plan, understood the risk, benefit, alternative treatment, potential consequence of no treatment, and gave informed consent. Initial Certification I certify that the inpatient psychiatric services are required for treatment that could reasonably be expected to improve the patient's condition for aggression and irritability Estimated days:2 Post hospital care: primary care provider, psychiatric provider The case was staffed with Dr. Pabon Legal Status: Voluntary Reaction to Hospitalization: Accepting Legal Status: Voluntary Legal Status: Voluntary Reaction to Hospitalization: Accepting Medications and Allergies Allergies Allergy/AdvReac Type Severity Reaction Status Date / Time No Known Allergies Allergy Unverified 04/14/20 13:15 Home Medications Medication Instructions Recorded Confirmed Last Taken Type Duloxetine HCl 1 tab PO DAILY 04/14/20 04/15/20 Unknown History OLANZapine [Zyprexa] 1 tab PO QHS 04/14/20 04/15/20 Unknown History traZODone [Desyrel] 200 mg PO QHS 04/14/20 04/15/20 Unknown History Active Meds: Active Medications Bupropion HCl (Bupropion 100 Mg Tab) 200 mg PO 0900,1400 [facility] Last Admin: 04/18/20 14:11 Dose: 200 mg Documented by: Divalproex Sodium (Divalproex Dr 250 Mg Tab) 1,000 mg PO QAM [facility] Divalproex Sodium (Divalproex Dr 500 Mg Tab) 500 mg PO QHS [facility] Duloxetine HCl (Duloxetine 30 Mg Cap) 60 mg PO QDAY [facility] Last Admin: 04/18/20 09:01 Dose: 60 mg Documented by: Hydroxyzine Pamoate (Hydroxyzine Pamoate 25 Mg Cap) 25 mg PO BID PRN PRN Reason: Anxiety Olanzapine (Olanzapine 10 Mg Tab) 20 mg PO QHS [facility] Last Admin: 04/18/20 21:50 Dose: 20 mg Documented by: Trazodone HCl (Trazodone 100 Mg Tab) 200 mg PO QHS [facility] Last Admin: 04/18/20 21:58 Dose: 100 mg Documented by: Results - Results Labs/Vitals: Laboratory Last Values POC Glucose 104 mg/dL (70-105) 04/16/20 20:09 Hemoglobin A1c 5.7 % (4-6) 04/17/20 10:22 Triglycerides 130 mg/dL (2-149) 04/17/20 10:22 Cholesterol 175 mg/dL (50-199) 04/17/20 10:22 LDL Cholesterol Direct 114 mg/dL (50-130) 04/17/20 10:22 HDL Cholesterol 51 mg/dL (40-59) 04/17/20 10:22 Cholesterol/HDL Ratio 3.43 % 04/17/20 10:22 TSH 1.350 mlU/mL (0.270-4.200) 04/17/20 10:22 Valproic Acid 30.7 ug/mL (50-100) L 04/18/20 19:58 Last Vital Signs Temp 98.9 F 04/18/20 19:39 Pulse 80 04/18/20 19:39 Resp 16 04/18/20 19:39 BP 106/67 04/18/20 19:39 Pulse Ox 94 04/18/20 19:39
[2020-04-19] MEDS: buPROPion 100 MG TAB PO SCH ×2 (09:59→14:00)
[2020-04-19] MEDS: DIVALPROEX DR 250 MG TAB PO SCH (10:00)
[2020-04-19] MEDS: DULoxetine 30 MG CAP PO SCH (10:00)
--- NOTE | 2020-04-19 20:24 | Progress Note ---
Assessment and Plan - Patient Problems (1) Hypertension Current Visit: Yes Status: Acute Qualifiers: Hypertension type: essential hypertension Qualified Code(s): I10 - Essential (primary) hypertension Plan to address problem: Patient is normotensive at this time. Continue to monitor blood pressure every shift. We will hold antihypertensive therapy for now. Patient is actually borderline hypotensive. (2) Diabetes Current Visit: Yes Status: Acute Plan to address problem: Supportive care. Hemoglobin A1c 5.7, consistent carbohydrate diet. History Interval history: 59 YO Female with HTN, Depression admitted to [facility] for Psychiatric stabilization. Patient seen and evaluated in the recreation room. Patient appears comfortable. Patient denies any complaints this AM. Patient denies pain. No reported nursing events. Hospitalist Physical - Constitutional Vitals: Temp Pulse Resp BP Pulse Ox 98.9 F 80 16 106/67 94 04/18/20 19:39 04/18/20 19:39 04/18/20 19:39 04/18/20 19:39 04/18/20 19:39 General appearance: Present: no acute distress, well-nourished - EENT Eyes: Present: PERRL, EOM intact - Neck Neck: Present: supple - Respiratory Respiratory effort: normal Respiratory: bilateral: CTA - Cardiovascular Rhythm: regular Peripheral Pulses: within normal limits - Abdominal General gastrointestinal: soft, non-tender, non-distended - Integumentary Integumentary: Present: clear, dry - Psychiatric Psychiatric: cooperative - Neurologic Neurologic: CNII-XII intact Results - Labs Labs: Laboratory Last Values POC Glucose 104 mg/dL (70-105) 04/16/20 20:09 Hemoglobin A1c 5.7 % (4-6) 04/17/20 10:22 Triglycerides 130 mg/dL (2-149) 04/17/20 10:22 Cholesterol 175 mg/dL (50-199) 04/17/20 10:22 LDL Cholesterol Direct 114 mg/dL (50-130) 04/17/20 10:22 HDL Cholesterol 51 mg/dL (40-59) 04/17/20 10:22 Cholesterol/HDL Ratio 3.43 % 04/17/20 10:22 TSH 1.350 mlU/mL (0.270-4.200) 04/17/20 10:22 Valproic Acid 30.7 ug/mL (50-100) L 04/18/20 19:58 Hernandez/IV: Voiding Method Toilet Active Medications - Current Medications Current Medications: Generic Name Dose Route Start Last Admin Trade Name Freq PRN Reason Stop Dose Admin Bupropion HCl 200 mg 04/17/20 09:30 04/19/20 14:00 Bupropion 100 Mg Tab PO 200 mg 0900,1400 [facility] Administration Divalproex Sodium 1,000 mg 04/19/20 10:00 04/19/20 10:[address] 250 Mg Tab PO 1,000 mg QAM [facility] Administration Divalproex Sodium 500 mg 04/19/20 22:[address] 500 Mg Tab PO QHS [facility] Duloxetine HCl 60 mg 04/16/20 10:00 04/19/20 10:00 Duloxetine 30 Mg Cap PO 60 mg QDAY [facility] Administration Hydroxyzine Pamoate 25 mg 04/15/20 15:31 Hydroxyzine Pamoate 25 Mg Cap PO BID PRN Anxiety Olanzapine 20 mg 04/15/20 22:00 04/18/20 21:50 Olanzapine 10 Mg Tab PO 20 mg QHS [facility] Administration Trazodone HCl 200 mg 04/15/20 22:00 04/18/20 21:58 Trazodone 100 Mg Tab PO 100 mg QHS [facility] Administration
--- NOTE | 2020-04-19 20:25 | Progress Note ---
Assessment and Plan - Patient Problems (1) Hypertension Current Visit: Yes Status: Acute Qualifiers: Hypertension type: essential hypertension Qualified Code(s): I10 - Essential (primary) hypertension Plan to address problem: Patient is normotensive at this time. Continue to monitor blood pressure every shift. We will hold antihypertensive therapy for now. Patient is actually borderline hypotensive. (2) Diabetes Current Visit: Yes Status: Acute Plan to address problem: Supportive care. Hemoglobin A1c 5.7, consistent carbohydrate diet. History Interval history: 59 YO Female with HTN, Depression admitted to [facility] for Psychiatric stabilization. Patient seen and evaluated in the recreation room. Patient appears comfortable. Patient denies any complaints this AM. Patient denies pain. No reported nursing events. Hospitalist Physical - Constitutional Vitals: Temp Pulse Resp BP Pulse Ox 98.9 F 80 16 106/67 94 04/18/20 19:39 04/18/20 19:39 04/18/20 19:39 04/18/20 19:39 04/18/20 19:39 General appearance: Present: no acute distress, well-nourished - EENT Eyes: Present: PERRL, EOM intact ENT: hearing intact - Neck Neck: Present: supple - Respiratory Respiratory: bilateral: CTA - Cardiovascular Rhythm: regular Heart Sounds: Present: S1 & S2 - Extremities Extremities: no ischemia Peripheral Pulses: within normal limits - Abdominal General gastrointestinal: soft, non-tender, non-distended - Integumentary Integumentary: Present: clear, dry - Psychiatric Psychiatric: cooperative - Neurologic Neurologic: CNII-XII intact Results - Labs Labs: Laboratory Last Values POC Glucose 104 mg/dL (70-105) 04/16/20 20:09 Hemoglobin A1c 5.7 % (4-6) 04/17/20 10:22 Triglycerides 130 mg/dL (2-149) 04/17/20 10:22 Cholesterol 175 mg/dL (50-199) 04/17/20 10:22 LDL Cholesterol Direct 114 mg/dL (50-130) 04/17/20 10:22 HDL Cholesterol 51 mg/dL (40-59) 04/17/20 10:22 Cholesterol/HDL Ratio 3.43 % 04/17/20 10:22 TSH 1.350 mlU/mL (0.270-4.200) 04/17/20 10:22 Valproic Acid 30.7 ug/mL (50-100) L 04/18/20 19:58 Hernandez/IV: Voiding Method Toilet Active Medications - Current Medications Current Medications: Generic Name Dose Route Start Last Admin Trade Name Freq PRN Reason Stop Dose Admin Bupropion HCl 200 mg 04/17/20 09:30 04/19/20 14:00 Bupropion 100 Mg Tab PO 200 mg 0900,1400 [facility] Administration Divalproex Sodium 1,000 mg 04/19/20 10:00 04/19/20 10:[address] 250 Mg Tab PO 1,000 mg QAM [facility] Administration Divalproex Sodium 500 mg 04/19/20 22:[address] 500 Mg Tab PO QHS [facility] Duloxetine HCl 60 mg 04/16/20 10:00 04/19/20 10:00 Duloxetine 30 Mg Cap PO 60 mg QDAY [facility] Administration Hydroxyzine Pamoate 25 mg 04/15/20 15:31 Hydroxyzine Pamoate 25 Mg Cap PO BID PRN Anxiety Olanzapine 20 mg 04/15/20 22:00 04/18/20 21:50 Olanzapine 10 Mg Tab PO 20 mg QHS [facility] Administration Trazodone HCl 200 mg 04/15/20 22:00 04/18/20 21:58 Trazodone 100 Mg Tab PO 100 mg QHS [facility] Administration
[2020-04-19] MEDS: traZODone 100 MG TAB PO SCH (21:47)
[2020-04-19] MEDS ORDERED: DIVALPROEX DR 500 MG TAB PO SCH (22:00)
--- NOTE | 2020-04-20 07:47 | Progress Note ---
Subjective Date of service: 04/20/20 Principal diagnosis: (1) Major Depressive Disorder with Psychotic Features Subjective Comment: Psych Nurse: Pt received relaxing in bed with depressive expression. Denies pain, SI or HI. "I'm doing much better," she verbalized. No acute distress observed and none reported. Will continue to monitor. 1818 Patient initially refused her Depakote, but finally up taking it. Caim and cooperative, participated well in group. She interact appropriately with peers and staff. She denies SI/HI. No distress noted, will continue to monitor for safety. Psych progress note Patient seen this AM, patient reports doing good today, denies SI, HI and patient says she is ready to go home and cant wait for her to pick her up today. She denies auditory visual hallucinations. Reason for continued acute psychiatric inpatient hospitalization: Patient to be discharged today, patient continues to be selective medication, but reports improved mood denies SI HI. Patient has outpatient psychiatric follow-up scheduled. REVIEW OF SYSTEMS Constitutional: Negative for weight loss ENT: Negative for stridor Respiratory: Negative for cough or hemoptysis All other systems reviewed and are negative MENTAL STATUS EXAMINATION General Appearance and Behavior: Age appropriate, good hygiene, wearing appropriate clothes, good eye contact Cooperation: Participating/engaged Psychomotor Behavior: Psychomotor normal Mood: feeling better Affect and affective range: congruent with mood Thought Process: fluent but preservative Thought Content: Logical, within reality Speech: Normal rate, volume and rhythm Suicidal Ideation: denies Homicidal Ideation: Denies Hallucinations: Denies Delusions: None elicited Impulse Control: unimpaired Insight and Judgment: Limited insight and judgment Memory: Normal Attention: Normal Orientation: Alert, oriented Assessment and Plan (1) Major Depressive Disorder with Psychotic Features (2) Generalized Anxiety Disorder Treatment Plan Depakote dose changed, due to subtherapeutic levels. Patient admitted for inpatient psychiatric evaluation, medication adjustment and close monitoring The patient's behavior, mood, sleep and appetite will be closely monitored. Patient enrolled in individual and group therapeutic sessions and encouraged to attend. Patient provided with a safe and structured environment. Patient's physical health needs will be addressed by the Hospitalist. Hospitalist Consulted Labs including CBC, CMP, Lipid profile and Hemoglobin A1C levels ordered for baseline reference Social Assessment will be completed and the Electrician Station Assistant will work with patient and family to ensure a suitable and safe disposition Medication adjustment will be made as clinically indicated Usual Wellness Christianity/Preservation: - Start Trazodone 50 mg po QHS - Start Melatonin 5 mg po QHS to promote circadian rhythm - Start [place]-3 for brain health, reduce impulsivity, and as adjunctive treatment for mood disorder, continue upon discharge given overall benefits. - Start B1 prophylaxis with 200 mg po for 5 days The patient agreed on the treatment plan, understood the risk, benefit, alternative treatment, potential consequence of no treatment, and gave informed consent. Initial Certification I certify that the inpatient psychiatric services are required for treatment that could reasonably be expected to improve the patient's condition for aggression and irritability Estimated days:1 Post hospital care: primary care provider, psychiatric provider The case was staffed with Dr. Pabon Legal Status: Voluntary Reaction to Hospitalization: Accepting Legal Status: Voluntary Legal Status: Voluntary Reaction to Hospitalization: Accepting Medications and Allergies Allergies Allergy/AdvReac Type Severity Reaction Status Date / Time No Known Allergies Allergy Unverified 04/14/20 13:15 Home Medications Medication Instructions Recorded Confirmed Last Taken Type Duloxetine HCl 1 tab PO DAILY 04/14/20 04/15/20 Unknown History OLANZapine [Zyprexa] 1 tab PO QHS 04/14/20 04/15/20 Unknown History traZODone [Desyrel] 200 mg PO QHS 04/14/20 04/15/20 Unknown History Active Meds: Active Medications Bupropion HCl (Bupropion 100 Mg Tab) 200 mg PO 0900,1400 [facility] Last Admin: 04/19/20 14:00 Dose: 200 mg Documented by: Divalproex Sodium (Divalproex Dr 250 Mg Tab) 1,000 mg PO QAM [facility] Last Admin: 04/19/20 10:00 Dose: 1,000 mg Documented by: Divalproex Sodium (Divalproex Dr 500 Mg Tab) 500 mg PO QHS [facility] Last Admin: 04/19/20 21:47 Dose: 500 mg Documented by: Duloxetine HCl (Duloxetine 30 Mg Cap) 60 mg PO QDAY [facility] Last Admin: 04/19/20 10:00 Dose: 60 mg Documented by: Hydroxyzine Pamoate (Hydroxyzine Pamoate 25 Mg Cap) 25 mg PO BID PRN PRN Reason: Anxiety Olanzapine (Olanzapine 10 Mg Tab) 20 mg PO QHS [facility] Last Admin: 04/19/20 21:47 Dose: 20 mg Documented by: Trazodone HCl (Trazodone 100 Mg Tab) 200 mg PO QHS [facility] Last Admin: 04/19/20 21:47 Dose: 200 mg Documented by: Results - Results Labs/Vitals: Laboratory Last Values POC Glucose 104 mg/dL (70-105) 04/16/20 20:09 Hemoglobin A1c 5.7 % (4-6) 04/17/20 10:22 Triglycerides 130 mg/dL (2-149) 04/17/20 10:22 Cholesterol 175 mg/dL (50-199) 04/17/20 10:22 LDL Cholesterol Direct 114 mg/dL (50-130) 04/17/20 10:22 HDL Cholesterol 51 mg/dL (40-59) 04/17/20 10:22 Cholesterol/HDL Ratio 3.43 % 04/17/20 10:22 TSH 1.350 mlU/mL (0.270-4.200) 04/17/20 10:22 Valproic Acid 30.7 ug/mL (50-100) L 04/18/20 19:58 Last Vital Signs Temp 98.9 F 04/18/20 19:39 Pulse 80 04/18/20 19:39 Resp 16 04/18/20 19:39 BP 106/67 04/18/20 19:39 Pulse Ox 94 04/18/20 19:39
--- NOTE | 2020-04-20 08:53 | Discharge Summary ---
Providers - Providers Date of Admission: 04/15/20 15:25 Date of discharge: 04/20/20 Attending physician: RUSTY JUAREZ MD 04/15/20 15:25 Consult to Physician [CONS] Routine Comment: Consulting Provider: JOANNE MENDEZ Physician Instructions: Reason For Exam: manage medical conditions Primary care physician: OPERATOR ASSISTANT I CEMENTING Hospitalization Reason for admission: Danger to self Condition: Good Hospital course: The patient was provided inpatient psychiatric treatment with safe and supportive environment, group/individual therapy, psychiatric medication, medication adjustment, adverse effect monitor, medical evaluation, medical treatment, social service assessment, social support meeting, placement ass essment and psycho-education. The patients mood, cognition, behavior are improved and stabilized but still is selective and non compliant with mediations.. At the time of discharge, the patient had no suicidal ideas, no homicidal ideas, no aggressive thoughts, no endangering behavior and no debilitating adverse effects. The patient agareed on the treatment plan, understood the risk, benefit, alternative treatment, potential consequence of no treatment, and gave informed consent. Disposition: DC-01 TO HOME OR SELFCARE Allergies/Adverse Reactions: Allergies No Known Allergies Allergy (Unverified 04/14/20 13:15) Vital Signs: Last Vital Signs Temp 98.9 F 04/18/20 19:39 Pulse 80 04/18/20 19:39 Resp 16 04/18/20 19:39 BP 106/67 04/18/20 19:39 Pulse Ox 94 04/18/20 19:39 Last Lab: Laboratory Last Values POC Glucose 104 mg/dL (70-105) 04/16/20 20:09 Hemoglobin A1c 5.7 % (4-6) 04/17/20 10:22 Triglycerides 130 mg/dL (2-149) 04/17/20 10:22 Cholesterol 175 mg/dL (50-199) 04/17/20 10:22 LDL Cholesterol Direct 114 mg/dL (50-130) 04/17/20 10:22 HDL Cholesterol 51 mg/dL (40-59) 04/17/20 10:22 Cholesterol/HDL Ratio 3.43 % 04/17/20 10:22 TSH 1.350 mlU/mL (0.270-4.200) 04/17/20 10:22 Valproic Acid 30.7 ug/mL (50-100) L 04/18/20 19:58 Core Measure Documentation - Palliative Care Palliative Care/ Comfort Measures: Not Applicable - Core Measures Any of the following diagnoses?: none Exam - Constitutional Vitals: Temp Pulse Resp BP Pulse Ox 98.9 F 80 16 106/67 94 04/18/20 19:39 04/18/20 19:39 04/18/20 19:39 04/18/20 19:39 04/18/20 19:39 - EENT Eyes: Present: PERRL, EOM intact ENT: hearing intact, clear oral mucosa - Neck Neck: Present: supple, normal ROM - Abdominal Female genitourinary: Present: deferred - Integumentary Integumentary: Present: clear, warm, dry Plan Care Plan Goals: Goals: Maintain good and stable mental health. Plan of Treatment: The patient should be compliant with medications, not to use drugs and not to drink alcohol. The patient understands that if suicidal ideas, homicidal ideas, or any endangering thoughts arise, the patient should immediately seek for emergent assistance including but not limited to crisis hot line and emergency room. Follow up with outpatient Psychiatrist and PCP within 7 - 14 days of discharge. Follow up with: PRIMARY CARE, [Primary Care Provider] - 7 Days Prescriptions: Divalproex [Sami Dixon] 500 mg PO QHS #30 tablet OLANzapine [Zyprexa] 20 mg PO QHS #30 tablet DULoxetine [Cymbalta] 60 mg PO QDAY 30 Days #30 capsule Divalproex [Sami Dixon] 1,000 mg PO QAM #30 tablet
[2020-04-20 10:28] VITALS: BP 135/78
[2020-04-20] MEDS: DULoxetine 30 MG CAP PO SCH (10:28)
[2020-04-20] MEDS: DIVALPROEX DR 250 MG TAB PO SCH (10:31)
[2020-04-20] MEDS: buPROPion 100 MG TAB PO SCH (10:31)
== END 2020-04-20 14:00 | disposition home or self-care (01) | DRG 885 ==
LOC: UNDOADMIN 15:20 → 3A 15:20 → 5A 15:25
PROVIDERS: ADMIT Psychiatry & Neurology Psychiatry; ATTEND Psychiatry & Neurology Psychiatry
DX: F32.3 Major depressive disorder, single episode, severe with psychotic features (principal); E11.9 Type 2 diabetes mellitus without complications; I10 Essential (primary) hypertension; F41.1 Generalized anxiety disorder
CPT/HCPCS: 36415; 80053; 80061; 80164; 80307; 80320; 81001; 82962; 83036; 84443; 85025; G0378; G0480; U0003